=== PATIENT | female | born 1995 | race Two or more races ===

== ENCOUNTER 2023-11-05 16:40 | Outpatient (OUT) | payer OTHER, SELFPAY ==
--- NOTE | 2023-11-05 16:54 | US_ITS ---
The [address] [address] Patient Name: TABATHA TAMAYO MRN: [id number] date: 1995 Sex: F Assigned Patient Location: Current Patient Location: Accession/Order Number: [id number] Exam Date: 11/05/2023 17:03 Report Date: 11/06/2023 07:46 At the request of: JULIET THOMAS Procedure: US OB <= 14 wk fetus add gest EXAMINATION: US OB transvaginal, US OB <= 14 wk fetus add gest HISTORY: TWIN GESTATION IN SECOND TRIMESTER O30.002 COMPARISON: No relevant comparison available. FINDINGS: BABY 1: GESTATIONAL SAC: Present and normal appearing. YOLK SAC: Present and normal appearing. POLE: Present and normal appearing. CARDIAC: 170 bpm BABY 2: GESTATIONAL SAC: Small gestational sac. YOLK SAC: Absent POLE: Present CARDIAC: Absent UTERUS: Normal size and appearance. OVARIES: Right: Normal. Left: Normal. CERVIX: 3.9 cm in length and closed. CUL-DE-SAC: Normal. OTHER: None. AGE BY LMP: 10 weeks 3 days DARION BY LMP: 05/30/2024 AGE BY US CRL: BABY 1: 10 weeks 1 day BABY 2: 6 weeks 4 days DARION BY US CRL: BABY 1: 06/01/2024 BABY 2: 06/26/2024 US/US OB <= 14 wk fetus add gest IMPRESSION: 1. Twin intrauterine , however, the second baby is notably behind in gestational age, has an asymmetrically gestational sac, and no detectable heartbeat suggesting demise. Electronically authenticated by: APOLINAR NOEL Date: 11/06/2023 07:46
--- NOTE | 2023-11-05 16:54 | US_ITS ---
The [address] [address] Patient Name: TABATHA TAMAYO MRN: [id number] date: 1995 Sex: F Assigned Patient Location: Current Patient Location: Accession/Order Number: [id number] Exam Date: 11/05/2023 17:03 Report Date: 11/06/2023 07:46 At the request of: JULIET THOMAS Procedure: US OB transvaginal EXAMINATION: US OB transvaginal, US OB <= 14 wk fetus add gest HISTORY: TWIN GESTATION IN SECOND TRIMESTER O30.002 COMPARISON: No relevant comparison available. FINDINGS: BABY 1: GESTATIONAL SAC: Present and normal appearing. YOLK SAC: Present and normal appearing. POLE: Present and normal appearing. CARDIAC: 170 bpm BABY 2: GESTATIONAL SAC: Small gestational sac. YOLK SAC: Absent POLE: Present CARDIAC: Absent UTERUS: Normal size and appearance. OVARIES: Right: Normal. Left: Normal. CERVIX: 3.9 cm in length and closed. CUL-DE-SAC: Normal. OTHER: None. AGE BY LMP: 10 weeks 3 days DARION BY LMP: 05/30/2024 AGE BY US CRL: BABY 1: 10 weeks 1 day BABY 2: 6 weeks 4 days DARION BY US CRL: BABY 1: 06/01/2024 BABY 2: 06/26/2024 US/US OB transvaginal IMPRESSION: 1. Twin intrauterine , however, the second baby is notably behind in gestational age, has an asymmetrically gestational sac, and no detectable heartbeat suggesting demise. Electronically authenticated by: APOLINAR NOEL Date: 11/06/2023 07:46
== END 2023-11-05 16:41 | disposition home or self-care (01) ==
LOC: US 16:44
PROVIDERS: Visit Provider Midwife
DX: O30.002 Twin pregnancy, unspecified number of placenta and unspecified number of amniotic sacs, second trimester (principal); O26.91 Pregnancy related conditions, unspecified, first trimester; Z3A.10 10 weeks gestation of pregnancy
CPT/HCPCS: 76802; 76817

== ENCOUNTER 2024-05-17 16:38 | Inpatient (IN) | payer OTHER, SELFPAY ==
[2024-05-17] VITALS (13 sets, daily range): BP systolic 135–175; BP diastolic 75–96; PULSE 76–101
[2024-05-17 17:21] LABS: Basophils Percent Auto 0.3 % (0.2-2.0); Eosinophils Percent Auto 0.6 % (0.9-7.0); Hematocrit 32.2 % (36.0-48.0); Hemoglobin 10.7 g/dL (12.0-16.0); Immature Granulocytes Abs Auto 0.02 10^3/uL (0.00-0.03); Immature Granulocytes Pct Auto 0.3 % (0.0-0.5); Lymphocytes Absolute Auto 1.4 10^3/uL (1.2-3.8); Mean Corpuscular HGB Conc 33.2 g/dL (29.9-35.2); Mean Corpuscular Hemoglobin 26.6 pg (26.7-34.0); Mean Corpuscular Volume 80.1 fL (81.0-99.0); Mean Platelet Volume 11.1 fL (9.5-13.5); Monocytes Absolute Auto 0.6 10^3/uL (0.3-0.8); Neutrophils Absolute Auto 5.2 10^3/uL (1.4-6.5); Neutrophils Percent Auto 71.8 % (43.0-75.0); Platelet Count 215 10^3/uL (150-450); Red Blood Count 4.02 10^6/uL (4.20-5.40); White Blood Count 7.3 10^3/uL (4.0-11.0)
[2024-05-17 17:47] LABS: Alanine Aminotransferase 16 U/L (14-59); Albumin Globulin Ratio 0.6; Albumin Level 2.4 g/dL (3.4-5.0); Alkaline Phosphatase 86 U/L (46-116); Anion Gap 16.1; Aspartate Amino Transferase 17 U/L (15-37); Bilirubin Total 0.3 mg/dL (0.2-1.0); Calcium 9.2 mg/dL (8.5-10.1); Carbon Dioxide 20.7 mmol/L (21.0-32.0); Chloride 105 mmol/L (98-107); Estimated GFR (African America >60 (>=60 mL/min/1.73m^2); Estimated GFR (Non-African Ame >60 (>=60 mL/min/1.73m^2); Globulin 3.9 g/dL; Glucose 74 mg/dL (74-106); Potassium 3.8 mmol/L (3.5-5.1); Sodium 138 mmol/L (136-145); Total Protein 6.3 g/dL (6.4-8.2)
[2024-05-17] MEDS: NIFEdipine 10 MG CAPSULE 20 MG PO (18:33)
[2024-05-17 18:37] LABS: Bilirubin Urine NEGATIVE (NEGATIVE); Blood Urine NEGATIVE (NEGATIVE); Clarity Urine CLEAR (CLEAR); Color Urine LT. YELLOW (YELLOW); Glucose Urine UA NEGATIVE (NEGATIVE); Ketones Urine TRACE mg/dL (NEGATIVE); Leukocyte Esterase Urine NEGATIVE (NEGATIVE); Nitrite Urine NEGATIVE (NEGATIVE); Protein Urine TRACE mg/dL (NEG/TRACE); Specific Gravity Urine 1.025 (1.005-1.025); Urobilinogen Urine 0.2 EU/dL (0.2-1.0)
[2024-05-17 18:43] LABS: Partial Thromboplastin Time 27.7 sec (22.3-36.2); Prothrombin Time 9.7 sec (9.0-11.6)
[2024-05-17 18:47] LABS: INR <0.93
[2024-05-17 18:50] LABS: Urine Microscopic Indicated NO
--- NOTE | 2024-05-17 19:10 | PC.NURSE ---
care relinquished to wagner mars
[2024-05-17 19:14] LABS: Creatinine Urine Random 95.89 mg/dL (20.00-300.00); Protein Creatinine Ratio Urine 0.33; Total Protein Urine Random 31.3 mg/dL (<=11.9)
[2024-05-17 19:27] LABS: Fibrinogen 585 mg/dL (200-400)
--- NOTE | 2024-05-17 21:54 | PM.OBHP ---
OB - H&P: HPI History of Present Illness Chief complaint: NST : 1 Para: 0 Gestational age based on last menstrual period: 37.5 Indications for induction: maternal hypertension (pre-eclampsia ) Comments: elevated blood pressure in office and abnormal labs. total urine PCR is 0.33 and blood pressure was 174/94 when patient arrived at hospital. Procardia 20 mg and blood pressure came down to 141/85. patient needs to be admitted for induction for pre-eclampsia. patient was deciding if she wanted to go to [place] due to the NICU being there. After discussion with her significant other and she called her mom, she has decided to stay here at [place] for IOL. History of Present Dating criteria: LMP confirmed by 1st trimester US care: good care Abnormal ultrasound findings: vanishing twin in first trimester complications: preeclampsia complications comment: elevated blood pressure and proteinuria Medical complications OB: other (obesity, elevated BMI 49.2 ) Labs Blood type: O (+) positive Rubella: immune RPR/VDLR: nonreactive GBS status: negative HBsAG: negative Review of Systems ROS Status of ROS: 10 or more systems reviewed and unremarkable except as noted in history and below [facility] Medical History (Updated 05/17/24 @ 22:31 by JULIET THOMAS APRN, DAVID) HSV-2 (herpes simplex virus 2) infection ?B00.9 - Herpesviral infection, unspecified (ICD-10) Meds Home Medications and Allergies Allergies Allergy/AdvReac Type Severity Reaction Status Date / Time No Known Drug Allergies Allergy Verified 05/17/24 17:00 Exam Constitutional Vital Signs, click to edit/add: Last Vital Signs Pulse 101 H 05/17/24 21:30 BP 145/83 H 05/17/24 21:30 Documenting provider has reviewed patient's vital signs: yes Common normals: no apparent distress General appearance: cooperative and comfortable Orientation/consciousness: Yes awake, Yes oriented to person, Yes oriented to place and Yes oriented to time HENNJ Common normals: normocephalic Eye Common normals: EOMs intact bilaterally Neck & C-Spine Common normals: no lymphadenopathy General: normal visual inspection Lymph Lymphatic: no lymphadenopathy noted Chest Common normals: inspection of chest normal Respiratory Common normals: normal respiratory effort Effort & inspection: able to speak in complete sentences Auscultation: clear to auscultation bilaterally Cardio Common normals: regular rate and regular rhythm Rate: regular rate Rhythm: regular rhythm GI Common normals: Normal to inspection, nondistended, normoactive bowel sounds present Inspection: normal to inspection Common normals: external appearance normal Back & Pelvis Common normals: no CVA tenderness General back: CVA tenderness Thoracic spine/upper back: normal to inspection Extremity Common normals: normal to inspection General: normal exam except as noted Neuro Common normals: oriented x3 Sensorium/orientation: awake, alert, oriented to person, oriented to place and oriented to time Psych Common normals: mental status grossly normal, thought process normal, cooperative, affect normal, speech normal, activity/motor behavior normal, denies hallucinations, denies homicidal ideation and denies suicidal ideation Appearance: grossly normal Attitude: calm Activity/motor behavior: appropriate eye contact Speech: normal speech Results Labs Labs: Short CBC 05/17/24 Range/Units 17:12 WBC 7.3 (4.0-11.0) 10^3/uL Hgb 10.7 L (12.0-16.0) g/dL Hct 32.2 L (36.0-48.0) % Plt Count 215 (150-450) 10^3/uL BMP 05/17/24 17:12 Sodium 138 Potassium 3.8 Chloride 105 Carbon Dioxide 20.7 L BUN 12.0 Creatinine 0.86 Glucose 74 Calcium 9.2 Liver Function 05/17/24 Range/Units 17:12 Total Bilirubin 0.3 (0.2-1.0) mg/dL AST 17 (15-37) U/L ALT 16 (14-59) U/L Alkaline Phosphatase 86 (46-116) U/L Albumin 2.4 L (3.4-5.0) g/dL Urine 05/17/24 Range/Units 17:55 Urine Color Lt. yellow (YELLOW) Urine Clarity Clear (CLEAR) Urine pH 6.0 (5.0-9.0) Ur Specific [place] 1.025 (1.005-1.025) Urine Protein Trace (NEG/TRACE) mg/dL Urine Glucose (UA) Negative (NEGATIVE) mg/dL OB - A/P Assessment and Plan (1) Pre-eclampsia: (2) Term :
[2024-05-17] MEDS: DINOPROSTONE 10 MG VAG INSERT.ER VAGINAL (22:56)
[2024-05-17] MEDS: LABETALOL HCL 200 MG TABLET PO (23:00)
[2024-05-17 23:08] LABS: Amphetamine Screen Urine NEGATIVE (NEGATIVE); Barbiturates Screen Urine NEGATIVE (NEGATIVE); Benzodiazepines Screen Urine NEGATIVE (NEGATIVE); Buprenorphine Screen Urine NEGATIVE (NEGATIVE); Cannabinoid Screen Urine NEGATIVE (NEGATIVE); Cocaine Screen Urine NEGATIVE (NEGATIVE); Methadone Screen Urine NEGATIVE (NEGATIVE); Methamphetamines Screen Urine NEGATIVE (NEGATIVE); Opiate Screen Urine NEGATIVE (NEGATIVE); Oxycodone Screen Urine NEGATIVE (NEGATIVE); Phencyclidine Screen Urine NEGATIVE (NEGATIVE); Tricyclic Antidepressant Urine NEGATIVE (NEGATIVE)
[2024-05-18] VITALS (27 sets, daily range): BP systolic 116–156; BP diastolic 65–91; PULSE 76–96; TEMP 36.2–36.8
[2024-05-18] MEDS: ACETAMINOPHEN 500 MG TABLET 1000 MG PO (01:48)
[2024-05-18 06:38] LABS: Lactate Dehydrogenase 196 U/L (81-234)
[2024-05-18] MEDS: LABETALOL HCL 200 MG TABLET PO ×2 (09:10→20:54)
[2024-05-18] MEDS: DINOPROSTONE 10 MG VAG INSERT.ER VAGINAL (11:30)
[2024-05-19] VITALS (50 sets, daily range): BP systolic 111–173; BP diastolic 64–96; PULSE 73–96; TEMP 36.3–36.8
[2024-05-19] MEDS: ZOLPIDEM TARTRATE 5 MG TABLET PO (00:48)
[2024-05-19] MEDS: LACTATED RINGER'S SOLUTION 1,000 ML 125 ML IV ×2 (00:48→08:57)
[2024-05-19] MEDS: OXYTOCIN/0.9 % SODIUM CHLORIDE 10 UNITS/500 ML PLAST..BAG 6 UNIT IV ×2 (00:49→14:06)
[2024-05-19] MEDS: LABETALOL HCL 200 MG TABLET PO ×2 (08:57→21:22)
[2024-05-19] MEDS: CALCIUM CARBONATE 500 MG (200MG ELEMENTAL) TAB CHEW 1000 MG PO (16:14)
[2024-05-20] VITALS (65 sets, daily range): BP systolic 90–144; BP diastolic 58–89; PULSE 67–97; TEMP 36.6–36.9; O2SAT 95–99
[2024-05-20] MEDS: LACTATED RINGER'S SOLUTION 1,000 ML 125 ML IV (00:38)
[2024-05-20] MEDS: OXYTOCIN/0.9 % SODIUM CHLORIDE 10 UNITS/500 ML PLAST..BAG 57 UNIT IV (01:50)
[2024-05-20] MEDS: PENICILLIN G POTASSIUM 5,000,000 UNIT in 0.9 % SODIUM CHLORIDE 100 ML 200 UNIT IV (02:50)
[2024-05-20] MEDS: ONDANSETRON PF 4 MG/2 ML VIAL IV (04:10)
--- NOTE | 2024-05-20 06:09 | PM.EN ---
Event Note Event Note: patient's cervical exam is unchanged since yesterday at 0930. Patient is 3/60/-3 and nurse states ballotable. I had discussion with patient regarding time frame of rupture of membranes, and unchanged cervix. We discussed the possibilities of this such as CPD, lie and presentation, failure to progress. PVU and after discussion and all questions answered, patient does agree to primary section. I called Dr Rosales with report and he agrees to a Clas B section.
[2024-05-20] MEDS: LACTATED RINGER'S SOLUTION 1,000 ML 1000 ML IV (06:15)
[2024-05-20] MEDS: METOCLOPRAMIDE HCL 10 MG/2 ML VIAL IVP (06:26)
[2024-05-20] MEDS: CITRIC ACID/SODIUM CITRATE 30 ML SOLUTION ORACIT SHOHL'S SOLN PO (06:26)
[2024-05-20] MEDS: FAMOTIDINE/PF 20 MG/2 ML VIAL IV (06:26)
[2024-05-20] MEDS: PENICILLIN G POTASSIUM 2,500,000 UNIT in 0.9 % SODIUM CHLORIDE 50 ML 100 UNIT IV (06:30)
[2024-05-20] MEDS: OXYTOCIN/0.9 % SODIUM CHLORIDE 20 UNITS/1,000 ML PLAST..BAG 125 UNIT IV (07:45)
--- NOTE | 2024-05-20 07:45 | P.ON_ITS ---
Brief Operative Note Date of procedure: 05/20/24 Pre-op diagnosis general: iup at 37 6/7wks, mild preeclampsia, failure to induce Post-op diagnosis: same as pre-op Procedure: NAME OF PROCEDURE: [ section ] PROCEDURE: Patient was taken back to the Operating Room where she was given a spinal anesthesia with Duramorph without difficulty. She was prepped and draped in the normal sterile fashion. A Pfannenstiel skin incision was then made 2 cm above the symphysis pubis and carried down to underlying rectus fascia using a Bovie. The fascia was incised in the midline and extended laterally using Carter scissors. Two Dereje clamps were placed on the superior aspect of the fascia and dissected off the underlying rectus muscles. The same was performed on the inferior aspect as well. The muscles were then in the midline. Peritoneum was identified and entered bluntly. The peritoneum was then extended superiorly and inferiorly with good visualization of the bladder. The bladder blade was inserted. A low transverse incision was made on the patient's uterus and extended laterally digitally. The was then delivered atraumatically after the bladder blade was removed in the cephalic position. The cord was clamp ed and cut. Cord blood was obtained. The was handed off to awaiting team. The patient's placenta was spontaneously delivered. The uterus was then exteriorized. The uterus was cleared of all clots and debris. The bladder blade was reinserted. The patient's uterine incision was closed using #0 Vicryl in a running lock fashion. Excellent hemostasis was assured. The uterus was then returned to the patient's abdomen. The patient's abdomen was copiously irrigated using warm saline. Peritoneal gutters were cleared of all clots and debris. Again excellent hemostasis was assured. The patient's peritoneum was closed using 3-0 Vicryl in a running fashion. The patient's fascia was closed using #0 Vicryl in a running fashion. The patient's skin was closed using 4-0 Vicryl subcuticularly. The patient tolerated the procedure well. Sponge, lap, and needle counts were correct x2. The patient was taken to the Recovery Room in stable condition. Anesthesia: spinal Surgeon: Edison Rosales Forge Shop Supervisor: JULIET THOMAS Estimated blood loss (mL): 575 Pathology: none sent Condition: stable Disposition: PACU
--- NOTE | 2024-05-20 07:48 | PM.OBPRCCS ---
Procedure Pre-op/Post-op diagnoses: Pre-Op/Post-Op Diagnoses Operation Date: 05/20/24 06:30 <No data on this case meets the specified criteria> Procedure: Procedures Operation Date: 05/20/24 06:30 Actual Procedure Side Surgeon p Not Applicable Edison Rosales DO Development Engineer: JULIET THOMAS Estimated blood loss (mL): 575 Disposition: PACU Anesthesia type: Spinal
--- NOTE | 2024-05-20 08:05 | P.EN_ITS ---
Event Note Event Note: Cushion Cover Inspector Note: I first assisted Dr Rosales as directed with primary section. I independently closed the SQ layer with 4-0 suture without difficulty, I then independently closed the skin incision with 3-0 vicryl without difficulty. Hemostasis noted at completion of closure. Patient tolerated procedure well.
[2024-05-20] MEDS: BUPIVACAINE LIPOSOME/PF 266 MG/13.3 ML VIAL INJ (08:06)
[2024-05-20] MEDS: KETOROLAC TROMETHAMINE 30 MG/ML VIAL IVP ×3 (09:14→21:01)
[2024-05-20] MEDS: LABETALOL HCL 200 MG TABLET PO ×2 (09:22→23:05)
[2024-05-20] MEDS: CEFAZOLIN SODIUM/DEXTROSE,ISO 2 GM/50 ML PIGGYBACK IV (13:18)
[2024-05-20] MEDS: ENOXAPARIN SODIUM 40 MG/0.4 ML SYRINGE SUBQ (19:00)
[2024-05-21] MEDS: ACETAMINOPHEN 500 MG TABLET 1000 MG PO ×4 (00:15→23:52)
--- NOTE | 2024-05-21 01:10 | NUTR.NU ---
0000- Patient up to bathroom and was able to void without difficuty.
[2024-05-21] MEDS: IBUPROFEN 400 MG TABLET 800 MG PO ×3 (03:35→18:20)
[2024-05-21 03:37] VITALS: BP 123/64; PULSE 89; TEMP 36.6
[2024-05-21 06:21] LABS: Basophils Percent Auto 0.2 % (0.2-2.0); Eosinophils Absolute Auto 0.1 10^3/uL (0.0-0.7); Eosinophils Percent Auto 0.7 % (0.9-7.0); Hemoglobin 7.6 g/dL (12.0-16.0); Immature Granulocytes Abs Auto 0.04 10^3/uL (0.00-0.03); Immature Granulocytes Pct Auto 0.5 % (0.0-0.5); Lymphocytes Absolute Auto 2.1 10^3/uL (1.2-3.8); Lymphocytes Percent Auto 23.8 % (20.5-60.0); Mean Corpuscular HGB Conc 32.5 g/dL (29.9-35.2); Mean Corpuscular Hemoglobin 26.9 pg (26.7-34.0); Mean Corpuscular Volume 82.7 fL (81.0-99.0); Mean Platelet Volume 10.9 fL (9.5-13.5); Monocytes Absolute Auto 0.7 10^3/uL (0.3-0.8); Monocytes Percent Auto 8.3 % (1.7-12.0); Neutrophils Absolute Auto 5.7 10^3/uL (1.4-6.5); Neutrophils Percent Auto 66.5 % (43.0-75.0); Platelet Count 182 10^3/uL (150-450); Red Blood Count 2.83 10^6/uL (4.20-5.40); Red Cell Distribution Width 13.5 % (11.0-15.0); White Blood Count 8.6 10^3/uL (4.0-11.0)
[2024-05-21 06:24] LABS: Hematocrit 23.4 % (36.0-48.0)
[2024-05-21 09:34] VITALS: BP 119/70; PULSE 82
[2024-05-21] MEDS: DOCUSATE SODIUM 100 MG CAPSULE PO ×2 (09:34→21:33)
[2024-05-21] MEDS: LABETALOL HCL 200 MG TABLET PO ×2 (09:34→21:33)
--- NOTE | 2024-05-21 10:21 | PM.OBPN ---
OB - PN: Subj Subjective Patient comments: no complaints [place] status: doing well [place] feeding status: exclusively Exam Constitutional Vital Signs, click to edit/add: Last Vital Signs Temp 97.9 F 05/21/24 03:37 Pulse 82 05/21/24 09:34 Resp 16 05/21/24 03:37 BP 119/70 05/21/24 09:34 Pulse Ox 95 05/20/24 11:00 O2 Del Method Room Air 05/21/24 03:37 Common normals: no apparent distress and oriented x3 General appearance: cooperative Orientation/consciousness: Yes awake, Yes oriented to person, Yes oriented to place and Yes oriented to time Eye Common normals: EOMs intact bilaterally Neck & C-Spine Common normals: full ROM Lymph Lymphatic: no lymphadenopathy noted Chest Common normals: inspection of chest normal Respiratory Common normals: normal respiratory effort Effort & inspection: able to speak in complete sentences Auscultation: clear to auscultation bilaterally Cardio Common normals: regular rate and regular rhythm Rate: regular rate Rhythm: regular rhythm GI Common normals: Normal to inspection, nondistended, normoactive bowel sounds present Palpation: soft Back & Pelvis Common normals: no CVA tenderness Extremity Common normals: normal to inspection Neuro Common normals: oriented x3 Sensorium/orientation: awake, alert, oriented to person, oriented to place and oriented to time Psych Common normals: mental status grossly normal, thought process normal, cooperative, affect normal, speech normal, activity/motor behavior normal, denies hallucinations, denies homicidal ideation and denies suicidal ideation Attitude: calm Results Labs Labs: Short CBC 05/21/24 Range/Units 06:12 WBC 8.6 (4.0-11.0) 10^3/uL Hgb 7.6 L (12.0-16.0) g/dL Hct 23.4 L* (36.0-48.0) % Plt Count 182 (150-450) 10^3/uL Urinary Catheter Management Urinary Catheter Management Urethral: Cath placed during this visit: yes, but has since been removed by the nurse Insertion date: 05/20/24 Insertion time: 06:22 Removal date: 05/20/24 Removal time: 16:15 OB - PN: A/P Assessment and Plan (1) Pre-eclampsia: (2) Term : Plan - day: 1 Plan: routine postop care Time Spent with Patient Time: Total time spent is greater than 50% in coordination of care (as documented) at patient's floor/unit and/or counseling patient: Total time spent with greater than 50% in coordination of care (as documented) at patient's floor/unit and/or counseling patient: less than 15 minutes
[2024-05-21 15:30] VITALS: TEMP 36.7
[2024-05-21 15:32] VITALS: BP 139/75; PULSE 91
[2024-05-21] MEDS: ENOXAPARIN SODIUM 40 MG/0.4 ML SYRINGE SUBQ (18:20)
[2024-05-21 21:32] VITALS: BP 132/70; PULSE 86
[2024-05-21 23:52] VITALS: BP 123/79; PULSE 80
[2024-05-22 00:10] VITALS: TEMP 36.1
[2024-05-22] MEDS: IBUPROFEN 400 MG TABLET 800 MG PO ×2 (04:02→11:48)
--- NOTE | 2024-05-22 08:40 | P.OBPN_ITS ---
OB - PN: Subj Subjective Patient comments: no complaints and pain well controlled [place] status: doing well Exam Constitutional Vital Signs, click to edit/add: Last Vital Signs Temp 97.0 F L 05/22/24 00:10 Pulse 80 05/21/24 23:52 Resp 18 05/22/24 00:10 BP 123/69 05/22/24 00:10 Pulse Ox 95 05/20/24 11:00 O2 Del Method Room Air 05/22/24 00:10 Documenting provider has reviewed patient's vital signs: yes Common normals: no apparent distress Respiratory Common normals: clear to auscultation bilaterally Cardio Common normals: regular rate and regular rhythm GI Common normals: Normal to inspection, nondistended, normoactive bowel sounds present Extremity Common normals: no clubbing, cyanosis or edema Urinary Catheter Management Urinary Catheter Management Urethral: Cath placed during this visit: yes, but has since been removed by the nurse Insertion date: 05/20/24 Insertion time: 06:22 Removal date: 05/20/24 Removal time: 16:15 OB - PN: A/P Assessment and Plan (1) Pre-eclampsia: (2) Term : Plan - day: 2 Plan: routine postop care, discharge home and other (1wk) Time Spent with Patient Time: Total time spent is greater than 50% in coordination of care (as documented) at patient's floor/unit and/or counseling patient: Total time spent with greater than 50% in coordination of care (as documented) at patient's floor/unit and/or counseling patient: less than 15 minutes
[2024-05-22] MEDS: OXYCODONE HCL/ACETAMINOPHEN 5MG/325MG 1 TAB PO (09:10)
[2024-05-22 09:16] VITALS: BP 125/94; PULSE 85
[2024-05-22] MEDS: LABETALOL HCL 200 MG TABLET PO (09:18)
[2024-05-22] MEDS: DOCUSATE SODIUM 100 MG CAPSULE PO (09:19)
--- OUTSIDE RECORDS SUMMARY | 2024-05-23 14:09 | XMS_ITS | CCD ---
Author Organization [facility] Care Team Providers Care [facility] Name Role Phone Eduar Rivers MD Primary Care Provider EDUAR RIVERS Attending Unavailable EDUAR RIVERS Attending Unavailable FLORO, JULIET Stephenson Attending Unavailable FLORO, JULIET Stephenson Referring Unavailable FLORO, JULIET Stephenson Attending Unavailable FLORO, JULIET Stephenson Attending Unavailable FLORO, JULIET Stephenson Referring Unavailable FLORO, JULIET Stephenson Attending Unavailable FLORO, JULIET Stephenson Attending Unavailable TITA, EDUAR Rico Attending Unavailable EDUAR RIVERS Attending Unavailable FLORO, JULIET Stephenson Attending Unavailable FLORO, JULIET Stephenson Referring Unavailable FLORO, JULIET Stephenson Attending Unavailable FLORO, JULIET Seema Attending Unavailable FLORO, JULIET Stephenson Attending Unavailable FLORO, JULIET Stephenson Attending Unavailable Medications Current Medications Medication Drug Class(es) Dates Sig (Normalized) Sig (Original) sertraline 25 mg oral tablet (5 sources) Serotonin Reuptake Inhibitor Start: 02-07-2024 take 1 tablet by mouth once daily sertraline (Zoloft) 25 MG tablet Indications: Sadness , Anxiety, generalized (CMS/HCC) Take 1 tablet (25 mg) by mouth Daily 30 tablet 02/07/2024 Active valACYclovir (7 sources) Herpesvirus Nucleoside Analog DNA Polymerase Inhibitor, Herpes Simplex Virus Nucleoside Analog DNA Polymerase Inhibitor, Herpes Zoster Virus Nucleoside Analog DNA Polymerase Inhibitor Start: 05-12-2018 VALACYCLOVIR HCL PO 05/12/2018 Active Problems Active Problems Problem Classification Problem Date Documented Date Episodic/Chronic Anxiety disorders (2 sources) Generalized anxiety disorder; Translations: [Generalized anxiety disorder] 05-18-2024 Chronic Hypertension complicating ; childbirth and the puerperium (2 sources) Elevated blood pressure; Translations: [Unspecified maternal hypertension, third trimester] 05-18-2024 Chronic Menstrual disorders (7 sources) Irregular periods; Translations: [Irregular menstruation, unspecified] Onset: 02-15-2024 02-15-2024 Chronic Mood disorders (14 sources) Major depression, single episode; Translations: [Major depressive disorder, single episode, unspecified] Onset: 10-31-2020 02-15-2024 Chronic Other complications of (2 sources) Vanishing twin syndrome; Translations: [Continuing after spontaneous of one fetus or more, unspecified trimester, not applicable or unspecified] 05-18-2024 Episodic Other and delivery including normal (4 sources) Third trimester ; Translations: [Encounter for supervision of normal first , third trimester] 05-02-2024 Episodic Other screening for suspected conditions (not mental disorders or infectious disease) (2 sources) Patient encounter status; Translations: [Encounter for screening for Streptococcus B] 05-02-2024 Episodic Viral infection (7 sources) Anogenital herpesviral infection; Translations: [Anogenital herpesviral infection, unspecified] Onset: 03-04-2023 02-15-2024 Chronic Past or Other Problems Problem Classification Problem Date Documented Da te Episodic/Chronic Other female genital disorders (7 sources) Disorder of female genital organs; Translations: [Unspecified condition associated with female genital organs and menstrual cycle] Onset: 02-15-2024 02-15-2024 Episodic Other gastrointestinal disorders (7 sources) Slow transit constipation; Translations: [Slow transit constipation] Onset: 02-15-2024 02-15-2024 Episodic Results Test Name Value Interpretation Reference Range Facil ity ALL CBC WITH AUTO DIFFon BASOPHILS ABSOLUTE AUTO 0 [facility] Basophils/100 WBC (Bld) 0.3 % 0.2 - 2.0 % [facility] Eosinophils/100 WBC (Bld) 0.6 % Low 0.9 - 7.0 % [facility] Erythrocyte distribution width (RBC) [Ratio] 13 % 11.0 - 15.0 % [facility] Hematocrit (Bld) [Volume fraction] 32.2 % Low 36.0 - 48.0 % [facility] Hem[facility] (Bld) [Mass/Vol] 10.7 g/dL Low 12.0 - 16.0 g/dL [facility] IMMATURE GRANULOCYTES ABS AUTO 0.02 [facility] Immature granulocytes/100 WBC (Bld) 0.3 % 0.0 - 0.5 % [facility] Interpretation and review of laboratory results Abnormal [facility] LYMPHOCYTES ABSOLUTE AUTO 1.4 [facility] Lymphocytes/100 WBC (Bld) 19 % Low 20.5 - 60.0 % [facility] MCH (RBC) [Entitic mass] 26.6 pg Low 26.7 - 34.0 pg [facility] MCHC (RBC) [Mass/Vol] 33.2 g/dL 29.9 - 35.2 g/dL [facility] MCV (RBC) [Entitic vol] 80.1 fL Low 81.0 - 99.0 fL [facility] MONOCYTES ABSOLUTE AUTO 0.6 [facility] Monocytes/100 WBC (Bld) 8 % 1.7 - 12.0 % [facility] NEUTROPHILS ABSOLUTE AUTO 5.2 [facility] Neutrophils/100 WBC (Bld) 71.8 % 43.0 - 75.0 % [facility] Platelet mean volume (Bld) [Entitic vol] 11.1 fL 9.5 - 13.5 fL [facility] EO # 0 [facility] PLT 215 [facility] TB RBC 4.02 Low [facility] WBC 7.3 [facility] US OB FOLLOW UP TRANSABDOMIN AL APPROACHon 03-21-2024 US OB FOLLOW UP TRANSABDOMINAL APPROACH TITLE OF EXAM: OB Ultrasound: REASON FOR EXAM: Growth, maternal obesity. TECHNIQUE: Grayscale and color Doppler imaging is performed. Measurements: heart rate: 151 bpm KAY: 17.8 cm (8.7-23.9) BPD: 7.8 cm HC: 27.8 cm AC: 26.6 cm FL: 5.9 cm GA for sonogram: 30.4 wk (27.9-32.8) Cervix length: 3.6 cm DARION: 05/21/2024 Weight Estimate: Weight: 1632 gm / 3 lbs, 9 oz (3602-1921) [place] Normal: 1812 gm (7355-5066 gm) [place] Wt%: 22% for 31.3 wks CLINICAL SUMMARY: A single intrauterine is noted in transverse presentation with head to the maternal right. heart is observed with a heart rate of 151 BPM size is borderline small (10%-25%) for gestational age by weight. Placenta is located left lateral. Placenta is Grade I/III Amniotic fluid volume is normal. Limited study. Full anatomical survey not performed. Dictated and transcribed 03/22/24/alfred This report has been electronically signed and approved by the interpreting radiologist. Electronically Signed James Torres M.D. 2024-03-22 12:28:24 Normal Not Available US OB 14+ WEEKS ANATOMY SCAN on 01-12-2024 US OB 14+ WEEKS ANATOMY SCAN FINDINGS: A single, live intrauterine is present with normal cardiac rate of 141 beats per minute. Normal activity and amniotic fluid volume. Amniotic fluid index is 17.0 cm. Morphology is grossly normal. The cervix is long and closed2.7 cm. The placenta is posterior, not associated with the cervical os. The current sonographic age is 21 weeks and 3 days, based on the following measurements: BPD 5.1cm (21 weeks, 3 days) Head Circumference 19.1cm (21 weeks,2 days) Abdominal Circumference 16.4cm ( 21weeks,3 days) Femur Length 3.6cm (21 weeks, 3 days) Presentation Variable Placenta Posterior, Grade 0 Weight (g) by Percentile 43.3 % * These measurements result in an estimated date of delivery of May 20, 2024. The current estimated weight is 423 grams ( pound, 15 ounces). IMPRESSION: Single, live intrauterine , current sonographic age of weeks and days, with an estimated date of delivery of * Estimated Weight (g) by Percentile is based upon an accurate estimated age based on last menstrual period. TRANSCRIBED BY: ELECTRONICALLY SIGNED BY: Chris Castro MD Normal Not Available US OB < 14 WEEKS EARLYon US OB < 14 WEEKS EARLY FINDINGS: Two viable intrauterine pregnancies are identified. Two separate amniotic sacs (one larger than the other, baby A), each containing a yolk sac and viable pole with normal decidual reaction. Cervix is closed, 3.5 cm. Twin A: [place]-rump length 10 mm (7 weeks and 0 days) Heart rate 141 bpm Twin B: [place]-rump length 5 mm (6 weeks and 1 day) Heart rate 125 bpm IMPRESSION: Twin intrauterine identified, approximate estimated date of delivery May 302023 TRANSCRIBED BY: ELECTRONICALLY SIGNED BY: Chris Castro MD Normal Not Available Vital Signs Date Time Vital Sign Value Performing Clinician Annabel valladares 05-17-2024 15:14-0400 Body mass index (BMI) [Ratio] 47.18 kg/m2 Juliet Segovia CNM Work Phone: [facility] 05-17-2024 15:14-0400 Body weight 125.65 kg Juliet Garciao CNM Work Phone: [facility] 05-17-2024 15:14-0400 Diastolic blood pressure 100 mm[Hg] Juliet Garciao CNM Work Phone: [facility] 05-17-2024 15:14-0400 Systolic blood pressure 160 mm[Hg] Juliet Garciao CNM Work Phone: [facility] 05-02-2024 15:23-0400 Diastolic blood pressure 100 mm[Hg] Juliet Garciao CNM Work Phone: [facility] Comment on above: recheck 122/70 05-02-2024 15:23-0400 Systolic blood pressure 150 mm[Hg] Juliet Segovia CNM Work Phone: [facility] Comment on above: recheck 122/70 Encounters Encounter Date Encounter Type Care Provider Facility Start: 05-17-2024 End: 05-17-2024 Initial care visit Juliet Segovia CNM Work Phone: [facility] Comment on above: Vanishing twin syndr ome (Primary Dx); Anxiety, generalized (CMS/HCC); Encounter for care of first , third trimester; Elevated blood pressure affecting in third trimester, antepartum Start: 05-17-2024 End: 05-17-2024 ambulatory JULIET Seema GARCIAO Not Available Start: 05-17-2024 End: 05-17-2024 Bamboo flowsheet Juliet Seema Garciao CNM Work Phone: [facility] Start: 05-17-2024 End: 05-17-2024 Bamboo flowsheet Juliet Seema Garciao CNM Work Phone: [facility] Start: 05-17-2024 End: 05-17-2024 [facility] Result Encounter Juliet Stephenson Floro CNM Work Phone: [facility] Unsolicited Start: 05-02-2024 End: 05-02-2024 Subsequent care visit Juliet Garciao CNM Work Phone: [facility] Comment on above: Encounter for prenat al care of first , third trimester (Primary Dx); screening for streptococcus B Start: 05-02-2024 End: 05-02-2024 ambulatory JULIET L FLORO Not Available Start: 05-02-2024 End: 05-02-2024 Bamboo flowsheet Juliet L Floro CNM Work Phone: [facility] Start: 05-02-2024 End: 05-02-2024 Bamboo flowsheet Juliet L Floro CNM Work Phone: [facility] Start: 04-18-2024 End: 04-18-2024 ambulatory JULIET L FLORO Not Available Start: 03-30-2024 End: 03-30-2024 ambulatory JULIET L FLORO Not Available Start: 03-21-2024 End: 03-21-2024 ambulatory JULIET L FLORO Not Available Start: 03-07-2024 End: 03-07-2024 ambulatory JULIET L FLORO Not Available Start: 02-19-2024 End: 02-19-2024 ambulatory EDUAR RIVERS Not Available Start: 02-15-2024 End: 02-15-2024 ambulatory EDUAR MULLINSER Not Available Start: 02-04-2024 End: 02-04-2024 ambulatory JULIET L FLORO Not Available Start: 01-12-2024 End: 01-12-2024 ambulatory JULIET L FLORO Not Available Start: 12-07-2023 End: 12-07-2023 ambulatory JULIET L FLORO Not Available Start: 11-11-2023 End: 11-11-2023 ambulatory JULIET L FLORO Not Available Start: 10-13-2023 End: 10-13-2023 ambulatory JULIET L FLORO Not Available Start: 08-07-2023 End: 08-07-2023 ambulatory EDUAR RIVERS Not Available Start: 07-24-2023 End: 07-24-2023 ambulatory EDUAR RIVERS Not Available Procedures Date Procedure Procedure Detail Performing Clinician Start: 05-17-2024 ALL CBC WITH AUTO DIFF Juliet Segovia CNM Work Phone: Plan of Treatment Date Care Activity Detail Author Start: 05-31-2024 End: 05-31-2024 Patient encounter procedure 05/31/2024 3:30 PM EST Routine [facility] [address] [place] [id number] Juliet Segovia, CNM [address] [place] [address] [facility] Start: 05-24-2024 End: 05-24-2024 Patient encounter procedure 05/24/2024 3:30 PM EDT Routine [facility] [address] [place] [id number] Juliet Segovia, CNM [address] [place] [address] [facility] Start: 05-17-2024 End: 05-17-2024 Patient encounter procedure [facility] Comment on above: Arrived Start: 05-02-2024 End: 05-02-2024 Patient encounter procedure 05/02/2024 3:30 PM EDT Routine [facility] [address] [place] [id number] Juliet Segovia, CNM [address] [place] [address] Arrived [facility] Comment on above: Arrived Start: 05-02-2024 End: 05-02-2025 STREPTOCCOUS, GROUP B CULTURE STREPTOCCOUS, GROUP B CULTURE Lab Routine screening for streptococcus B Expected: 05/02/2024 (Approximate), Expires: 05/02/2025 [facility] Work Phone: Comment on above: Expected: 05/02/2024 (Approximate), Expires: 05/02/2025 Start: 03-27-2024 Influenza vaccination Influenza Vacc ine (#1) [facility] Immunizations Immunization Date Immunization Notes Care Provider Carter rivera 03-20-2011 hepatitis A vaccine, pediatric/adolescent dosage, 2 dose schedule [facility] Work Phone: [facility] 09-20-2010 hepatitis A vaccine, pediatric/adolescent dosage, 2 dose schedule [facility] Work Phone: [facility] 03-22-2009 meningococcal polysaccharide (groups A, C, Y and W-135) diphtheria toxoid conjugate vaccine (MCV4P) [facility] Work Phone: [facility] 03-22-2009 tetanus toxoid, redu cuate diphtheria toxoid, and acellular pertussis vaccine, adsorbed [facility] Work Phone: [facility] 11-19-2000 diphtheria, tetanus toxoids and acellular pertussis vaccine, unspecified formulation [facility] Work Phone: [facility] 11-19-2000 measles, mumps and r ubella virus vaccine Juliet Floro [facility] Work Phone: [facility] 11-19-2000 poliovirus vaccine, inactivated [facility] Work Phone: [facility] 12-13-1996 diphtheria, tetanus toxoids and pertussis vaccine [facility] Work Phone: [facility] 12-13-1996 trivalent poliovirus vaccine, live, oral [facility] Work Phone: [facility] 06-21-1996 measles, mumps and r ubella virus vaccine Juliet Floro [facility] Work Phone: [facility] 1995 diphtheria, tetanus toxoids and pertussis vaccine [facility] Work Phone: [facility] 1995 hepatitis B vaccine, pediatric or pediatric/adolescent dosage Juliet Floro CNM Work Phone: [facility] 1995 diphtheria, tetanus toxoids and pertussis vaccine Juliet Floro CNM Work Phone: [facility] 1995 trivalent poliovirus vaccine, live, oral Juliet Floro CNM Work Phone: [facility] 1995 diphtheria, tetanus toxoids and pertussis vaccine Juliet Floro CNM Work Phone: [facility] 1995 hepatitis B vaccine, pediatric or pediatric/adolescent dosage Juliet Floro CNM Work Phone: [facility] 1995 trivalent poliovirus vaccine, live, oral Juliet Floro CNM Work Phone: [facility] 1995 hepatitis B vaccine, pediatric or pediatric/adolescent dosage Juliet Floro CNM Work Phone: [facility] Payers Date Payer Category Payer [facility] Insurance [facility] [id number] 2022 Unknown [employer] [id number] 2022-Present [phone] [address] [address] [place] [address] [id number] 2022 Unknown [id number] 1995 Unknown [id number] [id number] .2.1258 1995 Unknown [id number] [id number] .2.1258 1995 Unknown [id number] [id number] .2.1258 1995 Unknown [id number] 2.16.840.1.847521.3.579 .2.1258 1995 Unknown [id number] 2.16.840.1.179257.3.579 .2.1258 1995 Unknown [id number] 2.16.840.1.512179.3.579 .2.1258 1995 Unknown [id number] 2.16840.1.969349.3.579 .2.1258 1995 Unknown [id number] 2.16840.1.223054.3.579 .2.1258 1995 Unknown [id number] 2.16840.1.435448.3.579 .2.1258 1995 Unknown [id number] 2.16840.1.777704.3.579 .2.1258 1995 Unknown [id number] 2.16840.1.103802.3.579 .2.1258 1995 Unknown [id number] 2.16840.1.390085.3.579 .2.1258 1995 Unknown [id number] 2.16.840.1.624102.3.579 .2.1258 1995 Unknown [id number] 2.16.840.1.507130.3.579 .2.1258 1995 Unknown [id number] 2.16.840.1.671224.3.579 .2.1258 1995 Unknown [id number] 2.16840.1.915781.3.579 .2.1258 1995 Unknown [id number] [id number] .2.1259 Social History Date Type Detail Facility Start: 07-24-2023 Tobacco smoking status NHIS Never sm oked tobacco [facility] Start: 07-24-2023 Tobacco use and exposure Smoke less tobacco non-user [facility] Start: 02-19-2024 Alcoholic beverage intake Ex-drinker (finding) [facility] Start: 07-24-2023 End: 02-15-2024 History of Social function [facility] Start: 07-24-2023 End: 02-15-2024 Humiliation, Afraid, Rape, and Kick questionnaire [HARK] [facility] Within the last year , have you been afraid of your partner or ex-partner? No [facility] Are you now , , , , never or living with a partner? Never [facility] How often to you hav e a drink containing alcohol? 2-4 times a month [facility] How many standard dr inks containing alcohol do you have on a typical day? 3 or 4 [facility] How often do you hav e 6 or more drinks on 1 occasion? Less than monthly [facility] How hard is it for y ou to pay for the very basics like food, housing, medical care, and heating Not very hard [facility] Do you feel stress - tense, restless, nervous, or anxious, or unable to sleep at night because your mind is troubled all the time - these days [OSQ] To some extent [facility] (I/We) worried wheth er (my/our) food would run out before (I/we) got money to buy more. Never true [facility] In the past 12 month s, has lack of transportation kept you from medical appointments or from getting medications? No [facility] Start: 09-10-2023 [facility] Start: 1995 Sex assigned at Female [facility] Start: 07-23-2023 Gender identity Identifies as female gender (finding) [facility] History of Present illness Narrative 05-17-2024 Juliet Segovia CNM - 05/17/2024 3:15 PM EDT Note Date & Type Note Facility 05-17-2024 History of Presen t illness Narrative Subjective No chief complaint on file. Shea Parikh is a 28 y.o. at 37w5d with a working estimated date of delivery of 06/02/2024, by Ultrasound who presents for a routine visit. She denies vaginal bleeding, leakage of fluid, decreased movements, or contractions. OB History Para Term AB Living 1 SAB IAB Ectopic Multiple Live Births # Outcome Date GA Lbr Tej/2nd Weight Sex Type Anes PTL Lv 1 Current Her is complicated by: vanishing twin in first trimester, elevated blood pressure today in the office Objective Physical Exam weight: 277 lb Expected Total Weight Gain: 11 lb-19 lb Pregravid BMI: 40.19 BP: (!) 160/100 Urine protein-100 Urine glucose-negative Assessment/Plan Diagnoses and all orders for this visit: Vanishing twin syndrome Anxiety, generalized (CMS/HCC) Encounter for care of first , third trimester Elevated blood pressure affecting in third trimester, antepartum Patient blood pressure is elevated in the office x2 occasions today. She has small amount of proteinuria. I am sending her to [facility] for observation and pre-eclamptic testing.PVU all questions answered and I will call ulysses and give orders. Continue vitamin. Labs reviewed. GBS negative Expected mode of delivery Follow up in 1 week for a routine visit. documented in this encounter [facility] History of Present illness Narrative 05-02-2024 Juliet Segovia CNM - 05/02/2024 3:30 PM EDT Note Date & Type Note Facility 05-02-2024 History of Presen t illness Narrative Subjective No chief complaint on file. Shea Parikh is a 28 y.o. at 35w4d with a working estimated date of delivery of 06/02/2024, by Ultrasound who presents for a routine visit. She denies vaginal bleeding, leakage of fluid, decreased movements, or contractions. OB History Para Term AB Living 1 SAB IAB Ectopic Multiple Live Births # Outcome Date GA Lbr Tej/2nd Weight Sex Type Anes PTL Lv 1 Current Her is complicated by: Objective Physical Exam Expected Total Weight Gain: 11 lb-19 lb Pregravid BMI: 40.19 BP: (!) 150/100 Urine protein-negative Urine glucose-negative Assessment/Plan Continue vitamin. Labs reviewed. GBS done today Expected mode of delivery Follow up in 1 week for a routine visit. documented in this encounter [facility] Evaluation note Note Date & Type Note Facility Evaluation note Diagnosis Encounter for care of first , third trimester- Primary screening for streptococcus B screening for Streptococcus B documented in this encounter [facility] Evaluation note Note Date & Type Note Facility Evaluation note Diagnosis Vanishing twin syndrome- Primary Anxiety, generalized (CMS/HCC) Encounter for care of first , third trimester Elevated blood pressure affecting in third trimester, antepartum documented in this encounter [facility] Healthcare Summary Purpose Family History No Family History Records Found Advance Directives No Advanced Directives Records Found Additional Source Comments Care Teams (unrecognized sec tion and content) [facility] Relationship Specialty Start Date End Date Eduar Rivers MD [address] [place] [address] PCP - General Family Medicine 12/02/22 [facility] Relationship Specialty Start Date End Date Eduar Rivers MD [address] [place] [address] PCP - General Family Medicine 12/02/22 [facility] Relationship Specialty Start Date End Date Eduar Rivers MD [address] [place] [address] PCP - General Family Medicine 12/02/22 [facility] Relationship Specialty Start Date End Date Eduar Rivers MD [address] [facility] [place] [address] PCP - General Family Medicine 5/9/23 INFORMATION SOURCE (unrecogn ized section and content) DATE CREATED AUTHOR 05/22/2024 [facility] dical Specialists [facility] FOR RECORDS PERTAINING TO PATIENTS WHO ARE OR HAVE BEEN ENROLLED IN A CHEMICAL DEPENDENCY/SUBSTANCEABUSE PROGRAM, SOME INFORMATION MAY BE OMITTED. This clinical summary was aggregated from multiple sources. Caution should be exercised in using it in the provision of clinical care. This summary normalizes information from multiple sources, and as a consequence, information in this document may materially change the coding, format and clinical context of patient data. In addition, data may be omitted in some cases. CLINICAL DECISIONS SHOULD BE BASED ON THE PRIMARY CLINICAL RECORDS. [facility]. provides no warranty or guarantee of the accuracy or completeness of information in this document.
== END 2024-05-22 15:15 | disposition home or self-care (01) | DRG 788 ==
PROVIDERS: Admitting Provider Midwife; Visit Provider Obstetrics & Gynecology
PROC: (CPT 59514; principal; 2024-05-20 06:30)
DX: O14.04 Mild to moderate pre-eclampsia, complicating childbirth (principal); O61.9 Failed induction of labor, unspecified; O99.214 Obesity complicating childbirth; Z3A.37 37 weeks gestation of pregnancy; Z37.0 Single live birth
CPT/HCPCS: 36415; 51702; 59025; 59050; 64488; 80053; 80307; 81003; 82570; 83615; 84156; 84550; 85025; 85384; 85610; 85730; 86850; 86900; 86901; 88307; 94667; 94668; J0665; J0690; J1100; J1650; J1885; J2274; J2371; J2405; J2540; J2590; J2765

== ENCOUNTER 2024-05-23 08:50 | Outpatient (OUT) | payer OTHER, SELFPAY ==
[2024-05-23 14:53] VITALS: BP 144/93; PULSE 80; TEMP 36.8; O2SAT 98
--- NOTE | 2024-05-23 14:53 | PC.NURSE ---
Shea and 4 day old Rosangela arrive for follow up visit. FOB attends as well and is supportive. Parents states are doing OK, difficult night since discharge. Shea has been without pain medication or Labetalol since D/C as just dropped prescriptions earlier today to be filled. Pt states took 400 mg of Motrin last PM but is now feeling very uncomfortable . Discussed use of prescribed meds as well as over the counter meds for pain control. Voices understanding. VSS except BP 144/93. Aware of need to take Labetalol as prescribed for control of blood pressure. Denies headache, visual disturbances or epigastric distress. Assessment WNL, incision open to air, with steristrips intact. No redness, drainage or foul odor noted. Pt noted to have light pink rash on both upper areas of incision. States just noticed this AM Advised to call CNM if becomes symptomatic. Shea not sure if milk is in, but feels like it might be coming in a little bit Breasts are soft, non tender with intact nipples. Discussed process of milk coming in, staying hydrated and eating well to aid in production. Parents states baby probably eats every 2-4 hours, sometimes taking 30 minutes on one side to feed is not offered 2nd breast consistently as she is difficult to keep awake and parents need to sleep as well. Discussed feeding expectations, keeping awake at feeds, signs of a good feed vs. poor feed. Rosangela with VSS and assessment WNL except weight loss of 12.89%. REviewed need to increase food intact for baby, mom is agreeable to supplementing with formula until her milk fully transitions in. States will be able to pump after purchasing a pump to aid in stimulation. Discussed types of pumps that will help support supply now and when returns to work. Verbalized understanding. Message for Dr Coy, PCP, sent regarding weight loss and feeding plan to include supplementing with formula. Parents shown to slow pace bottle feed , questions answered. Plans made to follow up weight check 05/27/2024 @1030 with LC. aware to call with questions as needed prior to appointment. Family leaves ambulatory, no questions at this time.
== END 2024-05-23 08:51 | disposition home or self-care (01) ==
LOC: FBCO 09:17
PROVIDERS: Visit Provider Obstetrics & Gynecology
DX: Z39.2 Encounter for routine postpartum follow-up (principal)

== ENCOUNTER 2024-05-27 08:13 | Outpatient (OUT) | payer OTHER, SELFPAY ==
--- OUTSIDE RECORDS SUMMARY | 2024-05-27 08:17 | XMS_ITS | CCD ---
Author Organization [facility] Care Team Providers Care Foundation Relations Manager Name Role Phone Tasia Rivers MD Primary Care Provider TASIA RIVERS Attending Unavailable TITA, TASIA Rico Attending Unavailable FLORO, JULIET Stephenson Attending Unavailable FLORO, JULIET Stephenson Referring Unavailable FLORO, JULIET Stephenson Attending Unavailable FLORO, JULIET Stephenson Attending Unavailable FLORO, JULIET Stephenson Referring Unavailable FLORO, JULIET Stephenson Attending Unavailable FLORO, JULIET Stephenson Attending Unavailable TITA, TASIA Rico Attending Unavailable TITA, TASIA Rico Attending Unavailable FLORO, JULIET Stephenson Attending Unavailable FLORO, JULIET Stephenson Referring Unavailable FLORO, JULIET Stephenson Attending Unavailable FLORO, JULIET Stephenson Attending Unavailable FLORO, JULIET Seema Attending Unavailable FLORO, JULIET Stephenson Attending Unavailable Medications Current Medications Medication Drug Class(es) Dates Sig (Normalized) Sig (Original) acetaminophen 325 mg / oxyCODONE hydrochloride 5 mg oral tablet (2 sources) Opioid Agonist Start: 05-23-2024 oxyCODONE-acetamin ophen (Percocet) 5-325 MG tablet 05/23/2024 Active ibuprofen 800 mg oral tablet (2 sources) Nonsteroidal Anti-inflammatory Drug Start: 05-23-2024 ibuprofen 800 MG tablet Take 800 mg by mouth 05/23/2024 Active labetalol hydrochloride 200 mg oral tablet (2 sources) beta-Adrenergic Tere Start: 05-22-2024 take 1 tablet by mouth in the morning labetalol (Normodyne) 200 MG tablet Take 200 mg by mouth in the morning and 200 mg before bedtime. 05/22/2024 Active sertraline 25 mg oral tablet (7 sources) Serotonin Reuptake Inhibitor Start: 02-07-2024 End: 05-26-2024 take 1 tablet by mouth once daily sertraline (Zoloft) 25 MG tablet Indications: Sadness , Anxiety, generalized (CMS/HCC) Take 1 tablet (25 mg) by mouth Daily 30 tablet 02/07/2024 05/26/2024 Discontinued (Therapy completed) valACYclovir (10 sources) Herpesvirus Nucleoside Analog DNA Polymerase Inhibitor, [...] hypertension, third trimester] 05-18-2024 Chronic Menstrual disorders (10 sources) Irregular periods; Translations: [Irregular menstruation, unspecified] Onset: 02-15-2024 02-15-2024 Chronic Mood disorders (20 sources) Major depression, single episode; Translations: [Major depressive disorder, single episode, unspecified] Onset: 10-31-2020 02-15-2024 Chronic Other complications of (2 sources) Vanishing twin syndrome; Translations: [Continuing after spontaneous of one fetus or more, unspecified trimester, not applicable or unspecified] 05-18-2024 Episodic Other and delivery including normal (6 sources) Third trimester ; Translations: [Encounter for supervision of normal first , third trimester] 05-02-2024 Episodic Other screening for suspected conditions (not mental disorders or infectious disease) (2 sources) Patient encounter status; Translations: [Encounter for screening for Streptococcus B] 05-02-2024 Episodic Viral infection (10 sources) Anogenital herpesviral infection; Translations: [Anogenital herpesviral infection, unspecified] Onset: 03-04-2023 02-15-2024 Chronic Past or Other Problems Problem Classification Problem Date Documented Da te Episodic/Chronic Other female genital disorders (10 sources) Disorder of female genital organs; Translations: [Unspecified condition associated with female genital organs and menstrual cycle] Onset: 02-15-2024 02-15-2024 Episodic Other gastrointestinal disorders (10 sources) Slow transit constipation; Translations: [Slow transit constipation] Onset: 02-15-2024 02-15-2024 Episodic Results Test Name Value Interpretation Reference Range Facil ity ALL CBC WITH AUTO DIFFon BASOPHILS ABSOLUTE AUTO 0 [facility] Basophils/100 WBC (Bld) 0.2 % 0.2 - 2.0 % [facility] Eosinophils/100 WBC (Bld) 0.7 % Low 0.9 - 7.0 % [facility] Erythrocyte distribution width (RBC) [Ratio] 13.5 % 11.0 - 15.0 % [facility] Hematocrit (Bld) [Volume fraction] 23.4 % Critically low 36.0 - 48.0 % [facility] Comment on above: RESULTS CALLED TO VAL NOYOLA RN at 0622 Hemoglobin (Bld) [Mass/Vol] 7.6 g/dL Low 12.0 - 16.0 g/dL [facility] IMMATURE GRANULOCYTES ABS AUTO 0.04 High [facility] Immature granulocytes/100 WBC (Bld) 0.5 % 0.0 - 0.5 % [facility] Interpretation and review of laboratory results Abnormal [facility] LYMPHOCYTES ABSOLUTE AUTO 2.1 [facility] Lymphocytes/100 WBC (Bld) 23.8 % 20.5 - 60.0 % [facility] MCH (RBC) [Entitic mass] 26.9 pg 26.7 - 34.0 pg [facility] MCHC (RBC) [Mass/Vol] 32.5 g/dL 29.9 - 35.2 g/dL [facility] MCV (RBC) [Entitic vol] 82.7 fL 81.0 - 99.0 fL [facility] MONOCYTES ABSOLUTE AUTO 0.7 [facility] Monocytes/100 WBC (Bld) 8.3 % 1.7 - 12.0 % [facility] NEUTROPHILS ABSOLUTE AUTO 5.7 [facility] Neutrophils/100 WBC (Bld) 66.5 % 43.0 - 75.0 % [facility] Platelet mean volume (Bld) [Entitic vol] 10.9 fL 9.5 - 13.5 fL [facility] EO # 0.1 [facility] PLT 182 [facility] RBC 2.83 Low [facility] WBC 8.6 [facility] ALL CBC WITH AUTO DIFFon BASOPHILS ABSOLUTE AUTO 0 [facility] Basophils/100 WBC (Bld) 0.3 % 0.2 - 2.0 % [facility] Eosinophils/100 WBC (Bld) 0.6 % Low 0.9 - 7.0 % [facility] Erythrocyte distribution width (RBC) [Ratio] 13 % 11.0 - 15.0 % [facility] Hematocrit (Bld) [Volume fraction] 32.2 % Low 36.0 - 48.0 % [facility] Hemoglobin (Bld) [Mass/Vol] 10.7 g/dL Low 12.0 - 16.0 g/dL [facility] IMMATURE GRANULOCYTES ABS AUTO 0.02 [facility] Immature granulocytes/100 WBC (Bld) 0.3 % 0.0 - 0.5 % [facility] Interpretation and review of laboratory results Abnormal [facility] LYMPHOCYTES ABSOLUTE AUTO 1.4 [facility] Lymphocytes/100 WBC (Bld) 19 % Low 20.5 - 60.0 % [facility] MCH (RBC) [Entitic mass] 26.6 pg Low 26.7 - 34.0 pg [facility] MCHC (RBC) [Mass/Vol] 33.2 g/dL 29.9 - 35.2 g/dL [facility] MCV (RBC) [Entitic vol] 80.1 fL Low 81.0 - 99.0 fL [facility] MONOCYTES ABSOLUTE AUTO 0.6 [facility] Monocytes/100 WBC (Bld) 8 % 1.7 - 12.0 % [facility] NEUTROPHILS ABSOLUTE AUTO 5.2 [facility] Neutrophils/100 WBC (Bld) 71.8 % 43.0 - 75.0 % [facility] Platelet mean volume (Bld) [Entitic vol] 11.1 fL 9.5 - 13.5 fL [facility] PLT 215 [facility] RBC 4.02 Low [facility] WBC 7.3 [facility] US OB FOLLOW UP TRANSABDOMIN [...] 1632 gm / 3 lbs, 9 oz ([id number]) [place] Normal: 1812 gm (2441-3007 gm) [place] Wt%: 22% for 31.3 wks [...] anatomical survey not performed. Dictated and transcribed 03/22/24/dpd This report has been electronically signed and [...] Cervix is closed, 3.5 cm. Twin A: [place]-rump length 10 mm (7 weeks and 0 days) Heart rate 141 bpm Twin B: [place]-rump length 5 mm (6 weeks and 1 day) Heart rate 125 bpm IMPRESSION: Twin intrauterine identified, approximate estimated date of delivery May 30-2023 TRANSCRIBED BY: ELECTRONICALLY SIGNED BY: Chris Castro MD Normal Not Available Vital Signs Date Time Vital Sign Value Performing Clinician Faci monchoy 05-26-2024 09:23-0400 Body mass index (BMI) [Ratio] 43.09 kg/m2 Juliet Floro CNM Work Phone: [facility] 05-26-2024 09:23-0400 Body weight 114.76 kg Juliet Radhao CNM Work Phone: [facility] 05-26-2024 09:23-0400 Diastolic blood pressure 80 mm[Hg] Juliet Floro CNM Work Phone: [facility] 05-26-2024 09:23-0400 Systolic blood pressure 140 mm[Hg] Juliet Floro CNM Work Phone: [facility] 05-17-2024 15:14-0400 Body mass index (BMI) [Ratio] 47.18 kg/m2 Juliet Floro CNM Work Phone: [facility] 05-17-2024 15:14-0400 Body weight 125.65 kg Juliet Floro CNM Work Phone: [facility] 05-17-2024 15:14-0400 Diastolic blood pressure 100 mm[Hg] Juliet Floro CNM Work Phone: [facility] 05-17-2024 15:14-0400 Systolic blood pressure 160 mm[Hg] Juliet Floro CNM Work Phone: [facility] 05-02-2024 15:23-0400 Diastolic blood pressure 100 mm[Hg] Juliet Segovia CNM Work Phone: [facility] Comment on above: recheck 122/70 05-02-2024 15:23-0400 Systolic blood pressure 150 mm[Hg] Juliet Segovia CNM Work Phone: [facility] Comment on above: recheck 122/70 Encounters Encounter Date Encounter Type Care Provider Facility Start: 05-26-2024 End: 05-26-2024 Office outpatient visit 15 minutes Juliet Garciao CNM Work Phone: [facility] Comment on above: Encounter for postpa rtum visit (Primary Dx); H/O: section Start: 05-21-2024 End: 05-23-2024 [facility] Result Encounter Edison Bobby DO Work Phone: [facility] Unsolicited Start: 05-21-2024 End: 05-23-2024 [facility] Result Encounter Edison Bobby DO Work Phone: [facility] Unsolicited Start: 05-17-2024 End: 05-17-2024 Initial care visit Juliet Garciao CNM Work Phone: [facility] Comment on above: Vanishing twin syndr ome (Primary Dx); Anxiety, generalized (CMS/HCC); Encounter for care of first , third trimester; Elevated blood pressure affecting in third trimester, antepartum Start: 05-17-2024 End: 05-17-2024 ambulatory JULIET L FLORO Not Available Start: 05-17-2024 End: 05-17-2024 Bamboo flowsheet Juliet Seema Garciao CNM Work Phone: [facility] Start: 05-17-2024 End: 05-17-2024 Bamboo flowsheet Juliet Seema Garciao CNM Work Phone: [facility] Start: 05-17-2024 End: 05-17-2024 [facility] Result Encounter Juliet L Floro CNM Work Phone: [facility] Unsolicited Start: 05-02-2024 End: 05-02-2024 Subsequent care visit Juliet L Floro CNM Work Phone: [facility] Comment [...] Not Available Start: 02-19-2024 End: 02-19-2024 ambulatory TASIA MULLINSER Not Available Start: 02-15-2024 End: 02-15-2024 ambulatory TASIA Rico TITA Not Available Start: 02-04-2024 End: 02-04-2024 ambulatory JULIET L FLORO Not Available Start: 01-12-2024 End: 01-12-2024 ambulatory JULIET L FLORO Not Available Start: 12-07-2023 End: 12-07-2023 ambulatory JULIET L FLORO Not Available Start: 11-11-2023 End: 11-11-2023 ambulatory JULIET L FLORO Not Available Start: 10-13-2023 End: 10-13-2023 ambulatory JULIET L FLORO Not Available Start: 08-07-2023 End: 08-07-2023 ambulatory TASIA F TITA Not Available Start: 07-24-2023 End: 07-24-2023 ambulatory TASIA RIVERS Not Available Procedures Date Procedure Procedure Detail Performing Clinician Start: 05-21-2024 ALL CBC WITH AUTO DIFF Edisonmandy Woodardo DO Work Phone: Start: 05-17-2024 ALL CBC WITH AUTO DIFF Juliet Seema Segovia CNM Work Phone: H/O: section H/O: secti on Juliet L Floro CNM Work Phone: Plan of Treatment Date Care Activity Detail Author Start: 06-02-2024 End: 06-02-2024 ambulatory 06/02/2024 10:45 AM EST Visit [facility] [address] [facility] [place] [id number] Juliet Segovia, CNM [address] [facility] [place] [address] [facility] Start: 05-31-2024 End: 05-31-2024 Patient encounter procedure 05/31/2024 3:30 PM EST Routine [facility] [address] [facility] [place] [address] Juliet Segovia, CNM [address] [facility] [place] [address] [facility] Start: 05-26-2024 End: 05-26-2024 ambulatory 05/26/2024 9:00 AM EDT Visit [facility] [address] [facility] [place] [address] Juliet Segovia, CNM [address] [facility] [place] [address] [facility] Start: 05-24-2024 End: 05-24-2024 Patient encounter procedure 05/24/2024 3:30 PM EDT Routine [facility] [address] [facility] [place] [address] Juliet Segovia, CNGenaro [address] [place] [address] [facility] Start: 05-17-2024 End: 05-17-2024 Patient encounter procedure [facility] Comment on above: Arrived Start: 05-02-2024 End: 05-02-2024 Patient encounter procedure 05/02/2024 3:30 PM EDT Routine [facility] [address] [place] [id number] Juliet Segovia, CNM [address] [place] [address] Arrived [facility] Comment on above: Arrived Start: 05-02-2024 End: 05-02-2025 STREPTOCCOUS, GROUP B CULTURE STREPTOCCOUS, GROUP B CULTURE Lab Routine screening for streptococcus B Expected: 05/02/2024 (Approximate), Expires: 05/02/2025 [facility] Work Phone: Comment on above: Expected: 05/02/2024 (Approximate), Expires: 05/02/2025 Start: 03-27-2024 Influenza vaccination Influenza Vacc ine (#1) [facility] Immunizations Immunization Date Immunization Notes Care Provider [facility] 03-20-2011 hepatitis A vaccine, pediatric/adolescent dosage, 2 dose schedule Juliet [facility] Work Phone: [facility] 09-20-2010 hepatitis A vaccine, pediatric/adolescent dosage, 2 dose schedule Juliet [facility] Work Phone: [facility] 03-22-2009 meningococcal polysaccharide (groups A, C, Y and W-135) diphtheria toxoid conjugate vaccine (MCV4P) Juliet [facility] Work Phone: [facility] 03-22-2009 tetanus toxoid, redu cuate diphtheria toxoid, and acellular pertussis vaccine, adsorbed [facility] Work Phone: [facility] 11-19-2000 diphtheria, tetanus toxoids and acellular pertussis vaccine, unspecified formulation Juliet Floro CNM Work Phone: [facility] 11-19-2000 measles, mumps and r ubella virus vaccine Juliet Floro CNM Work Phone: [facility] 11-19-2000 poliovirus vaccine, inactivated Juliet Floro CNM Work Phone: [facility] 12-13-1996 diphtheria, tetanus toxoids and pertussis vaccine Juliet Floro CNM Work Phone: [facility] 12-13-1996 trivalent poliovirus vaccine, live, oral Juliet Floro CNM Work Phone: [facility] 06-21-1996 measles, mumps and r ubella virus vaccine Juliet Floro CNM Work Phone: [facility] 1995 diphtheria, tetanus toxoids and pertussis vaccine Juliet Floro CNM Work Phone: [facility] 1995 hepatitis B vaccine, pediatric or pediatric/adolescent dosage Juliet Floro CNM Work Phone: [facility] 1995 diphtheria, tetanus toxoids and pertussis vaccine Juliet Floro CNM Work Phone: [facility] 1995 trivalent poliovirus vaccine, live, oral Juliet Floro CNM Work Phone: [facility] 1995 diphtheria, tetanus toxoids and pertussis vaccine Juliet Floro CNM Work Phone: [facility] 1995 hepatitis B vaccine, pediatric or pediatric/adolescent dosage Juliet Floro CNM Work Phone: [facility] 1995 trivalent poliovirus vaccine, live, oral Juliet Floro CNM Work Phone: [facility] 1995 hepatitis B vaccine, pediatric or pediatric/adolescent dosage Juliet Floro CNM Work Phone: [facility] Payers Date Payer Category [facility] [id number] 2022 Unknown [employer] [id number] 2022-Present [phone] [address] [address] [place] [address] [id number] 2022 Unknown [id number] 1995 Unknown [id number] [id number] .2.1258 1995 Unknown [id number] 2.16.840.1.752158.3.579 .2.1258 1995 Unknown [id number] 2.16.840.1.193963.3.579 .2.1258 1995 Unknown [id number] 2.16.840.1.563067.3.579 .2.1258 1995 Unknown [id number] 2.16.840.1.252942.3.579 .2.1258 1995 Unknown [id number] 2.16.840.1.213169.3.579 .2.1258 1995 Unknown [id number] 2.16.840.1.515327.3.579 .2.1258 1995 Unknown [id number] 2.16.840.1.538296.3.579 .2.1258 1995 Unknown [id number] 2.16.840.1.329003.3.579 .2.1259 1995 Unknown [id number] 2.16.840.1.440898.3.579 .2.9 1995 Unknown [id number] 2.16.840.1.463605.3.579 .2.9 1995 Unknown [id number] 2.16.840.1.182179.3.579 .2.1258 1995 Unknown [id number] 2.16.840.1.853241.3.579 .2.1258 1995 Unknown [id number] 2.16.840.1.356005.3.579 .2.1258 1995 Unknown [id number] 2.16.840.1.076124.3.579 .2.9 1995 Unknown [id number] 2.16.840.1.838388.3.579 .2.9 1995 Unknown [id number] 2.16.840.1.077423.3.579 .2.1259 Social History Date Type Detail Facility Start: 07-24-2023 Tobacco smoking status NCIS Never sm oked tobacco [facility] Start: 07-24-2023 Tobacco use and exposure Smoke less tobacco non-user [facility] Start: 02-19-2024 End: 05-26-2024 Alcoholic beverage intake Ex-drinker (finding) [facility] Start: 07-24-2023 End: 02-15-2024 History of Social [...] [facility] History of Present illness Narrative 05-26-2024 Juliet Segovia CNM - 05/26/2024 9:00 AM EDT Note Date & Type Note Facility 05-26-2024 History of Presen t illness Narrative Shea Parikh is here for visit. She is 1 weeks . Complaints: has no unusual complaints Weeks at delivery: 38 week Type of delivery: , Low Transverse; primary Gender: female Baby is healthy: yes Breast or bottle feeding: breast and bottle Complaints or complications: no complications mood: well Contraception: none Resumed Sexual activity: no Resumed Menses: no EXAM: GENERAL APPEARANCE: alert, well appearing, in no apparent distress ASSESSMENT/PLAN: There are no diagnoses linked to this encounter. Patient has history of Pre-eclampsia, blood pressure today was 140/80 and she is currently taking Labetalol 200 mg BID. I would like her to continue the dose and I will see her in 1 week for a blood pressure check. She does check them at home and I did advise her to contact me or go to the hospital if it reaches 150/90 or higher. normal exam documented in this encounter [facility] History [...] Live Births # Outcome Date GA Lbr Etj/2nd Weight Sex Type Anes PTL Lv 1 [...] of proteinuria. I am sending her to [facility] for observation and pre-eclamptic testing.PVU all questions answered and I will call isabella and give orders. Continue vitamin. Labs reviewed. [...] a routine visit. documented in this encounter [facility] Evaluation note Note Date & Type Note Facility Evaluation note Diagnosis Encounter for care of first , third trimester- Primary screening for streptococcus B screening for Streptococcus B documented in this encounter [facility] Evaluation note Note Date & Type Note Facility Evaluation note Diagnosis Vanishing twin syndrome- Primary Anxiety, generalized (CMS/HCC) Encounter for care of first , third trimester Elevated blood pressure affecting in third trimester, antepartum documented in this encounter [facility] Evaluation note Note Date & Type Note Facility Evaluation note Diagnosis Encounter for visit- Primary H/O: section Other postprocedural status documented in this encounter [facility] Summary Purpose Family History No Family History Records Found Advance Directives No Advanced Directives Records Found Additional Source Comments Care Teams (unrecognized sec tion and content) Foundation Relations Manager Relationship Specialty Start Date End Date Tasia Rivers MD [address] [facility] [place] [address] PCP - General Family Medicine 12/02/22 Foundation Relations Manager Relationship Specialty Start Date End Date Tasia Rivers MD [address] [place] [address] PCP - General Family Medicine 12/02/22 Foundation Relations Manager Relationship Specialty Start Date End Date Tasia Rivers MD [address] [place] [address] PCP - General Family Medicine 12/02/22 Foundation Relations Manager Relationship Specialty Start Date End Date Tasia Rivers MD [address] [facility] [place] [address] PCP - General Family Medicine 12/02/22 Foundation Relations Manager Relationship Specialty Start Date End Date Tasia Rivers MD [address] [facility] [place] [address] PCP - General Family Medicine 12/02/22 Foundation Relations Manager Relationship Specialty Start Date End Date Tasia Rivers MD [address] [facility] [place], [place] [id number] PCP - General Family Medicine 12/02/22 INFORMATION SOURCE (unrecogn ized section and content) DATE CREATED AUTHOR 05/22/2024 [facility] EPIC Reason for Visit (unrecogniz ed section and content) Reason Comments Care FOR RECORDS PERTAINING TO PATIENTS WHO ARE [...] BE BASED ON THE PRIMARY CLINICAL RECORDS. [employer] provides no warranty or guarantee of the accuracy or completeness of information in this document.
--- NOTE | 2024-05-27 11:42 | PC.NURSE ---
Shea and Rosangela (1 week) arrive for weight check. Shea states milk really started coming in this morning, very early. Just started dripping . Pumping after every feed and obtains 15-30 ml. Parents are liking feeding plan of supplementing with pumped milk, or formula if not enough breast milk. Baby generally takes 1 oz after feeds, other feeds will take less. Mom hesitant to try supplement every other feed, this is working right now, I just want to keep doing this . Discussed pumping when going back to work at 6 weeks and has plan in place at this time. Declines further weight check as infant doing well. Will call for questions or concerns as needed.
== END 2024-05-27 11:47 | disposition home or self-care (01) ==
LOC: FBCO 08:14
PROVIDERS: Visit Provider Midwife
DX: Z39.1 Encounter for care and examination of lactating mother (principal)
CPT/HCPCS: G0463

== ENCOUNTER 2024-07-11 08:44 | Outpatient (OUT) | payer OTHER, SELFPAY ==
--- NOTE | 2024-07-11 13:49 | PC.NURSE ---
Shea and 7+3 week Rosangela arrive for support. Robby is here and supportive as well. Shea states she feels as if the latch i sallow, not causing obvious pain or nipple damage, but just enough to make it annoying. Parents also question if baby has reflux as will occasionally regurg with burping. Denies crying, irritability, arching back, or other symptoms or reflux. Discussed normal expectation of spit up. Parents to watch for more details with reflux concerns and discuss with PCP next week. Shea places infant to breast, hold baby to breast with limited support and just brushes baby's mouth at tip of nipple. attempts to grasp nipple several times before actually latching. Shea is not sure why just doesn't latch . Again discussed normal expectation of infant ability to do the work herself and mom's need to bring baby deeper into latch. Does as explained resulting in more comfort, feeling a deeper tug at breast and not annoying sensation . Encouraged to continue using good positioning for latch. Not sure what she will do for returning to work, not excited to pump as really didn't like that , but wants baby to have breast milk for 6 months. 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 Reminded of [facility] group and continued support from as needed. Family leaves together.
== END 2024-07-11 14:01 | disposition home or self-care (01) ==
LOC: FBCO 08:45
PROVIDERS: Visit Provider Obstetrics & Gynecology
DX: Z39.1 Encounter for care and examination of lactating mother (principal)